=== PATIENT | female | born 1955 | race Two or more races ===

== ENCOUNTER 2025-02-05 12:14 | Emergency (ER) | payer OTHER ==
[~2025-02-05] VITALS: Ht 157.5 cm; Wt 58.1 kg
[2025-02-05] MEDS ORDERED: PROAIR RESPICL90 MCG IH (13:05)
[2025-02-05] MEDS ORDERED: SINGULAIR4 M1 PO (13:05)
[2025-02-05] MEDS ORDERED: METRONIDAZOLE/SODIUM CHLORIDE 500 MG/100 ML PIGGYBACK IV ONE ×2 (13:43→13:45)
[2025-02-05] MEDS ORDERED: ONDANSETRON HCL 2 MG/ML VIAL ONE (13:43)
[2025-02-05] MEDS ORDERED: FAMOTIDINE/PF 20 MG/2 ML VIAL ONE (13:44)
[2025-02-05] MEDS ORDERED: FAMOtidine 10 MG/ML (4ML VIAL) IV ONE (13:45)
[2025-02-05] MEDS ORDERED: 0.9 % SODIUM CHLORIDE 1,000 ML IV ONE (13:45)
[2025-02-05] MEDS ORDERED: ONDANSETRON HCL 2 MG/ML VIAL IV ONE (13:45)
[2025-02-05 14:09] LABS: BASO % 0.7 % (0.1-1.2); EOS # 0.11 (0.04-0.54); EOS % 1.6 % (0.7-7.0); HEMATOCRIT 35.4 % (34.1-44.9); HEMOGLOBIN 11.9 g/dL (11.2-15.7); LYMPH # 2.27 (1.18-3.74); LYMPH % 33.3 % (19.3-53.1); MONO # 0.54 (0.24-0.82); MONO % 7.9 % (4.7-12.5); NEUT # 3.83 (1.56-6.13); NEUT % 56.4 % (34.0-71.1); PLATELET COUNT 255 K/uL (163-369); RED BLOOD COUNT 3.97 M/uL (3.93-5.22); RED CELL DISTRIBUTION WIDTH 13.3 % (11.6-14.4)
[2025-02-05] MEDS ORDERED: BARIUM SULFATE 450 ML ORAL.SUSP PO ONE (14:22)
[2025-02-05 14:36] LABS: INR 1.06; PARTIAL THROMBOPLASTIN TIME 24.2 SECONDS (22.0-34.0); PROTHROMBIN TIME 11.5 SECONDS (9.0-11.5)
[2025-02-05 14:39] LABS: ALBUMIN 3.9 gm/dL (3.4-5.0); BILIRUBIN TOTAL 0.49 mg/dL (0.3-1.2); CALCIUM 9.5 mg/dL (8.5-10.1); CREATININE SERUM 0.69 mg/dL (0.55-1.02); GFR 84.61; GLOBULINA 3.4 G/DL (2.4-3.5); POTASSIUM 3.47 mEq/L (3.5-5.1); TOTAL PROTEIN 7.3 gm/dL (6.4-8.2)
[2025-02-05 15:59] LABS: URINE APPEARANCE Clear; URINE BILIRRUBIN Negative (NEGATIVE); URINE BLOOD Trace; URINE COLOR Yellow; URINE GLUCOSE Negative (NEGATIVE); URINE KETONE Negative (NEGATIVE); URINE LEUKOCYTE Moderate; URINE NITRATE Negative; URINE PROTEIN Negative (NEGATIVE); URINE UROBILINOGEN 0.2 E.U./dl
[2025-02-05 16:02] LABS: URINE BACTERIA 190.8 uL (0.0-1933); URINE EPITHELIAL CELLS 7.7 uL (0.0-38.8); URINE RBC 13.6 uL (0.0-20.8); URINE WBC 79.8 uL (0.0-23.2)
[2025-02-05] MEDS ORDERED: MACROBID 100 M100 MG PO (18:43)
== END 2025-02-05 18:57 | disposition home or self-care (01) ==
LOC: ER 12:14
PROVIDERS: General Practice
DX: R10.32 Left lower quadrant pain (principal); Z91.041 Radiographic dye allergy status; Z88.0 Allergy status to penicillin; K57.32 Diverticulitis of large intestine without perforation or abscess without bleeding; Z88.2 Allergy status to sulfonamides; Z88.6 Allergy status to analgesic agent; J45.909 Unspecified asthma, uncomplicated; K21.9 Gastro-esophageal reflux disease without esophagitis; N39.0 Urinary tract infection, site not specified; K57.30 Diverticulosis of large intestine without perforation or abscess without bleeding
CPT/HCPCS: 36415; 74177; 96365; 96366; 99284; J2405; J7030; Q9965